=== PATIENT | male | born 1990 | race Caucasian/White ===

== ENCOUNTER 2016-03-27 15:41 | Emergency (ER) | payer OTHER, SELFPAY ==
[2016-03-27 15:41] VITALS: BMI 24.4
--- NOTE | 2016-03-27 17:20 | EDPRACDOC ---
- General Information Stated Complaint: DENTAL PAIN Time Seen by Provider: 03/27/16 17:13 Information Source: Patient Home Medications: Home Medications Amoxicillin 500 mg PO BID #20 capsule 10/18/15 BuPROPion (Daily formulation) [Wellbutrin Xl] 150 mg PO DAILY 10/18/15 Citalopram Hydrobromide [Celexa] 20 mg PO DAILY 10/18/15 Oxycodone Immediate Release [Oxycodone Immediate Release (OxyIR)] 5 mg PO BID # 7 tab 10/18/15 Ondansetron [Zofran Odt] 4 mg PO Q6H PRN #10 tab.rapdis 10/24/15 Amoxicillin Trihydrate [Amoxicillin] 500 mg PO TID #21 tab 03/27/16 Hydrocodone Bit/Acetaminophen [Lortab 5/325] 1 tab PO Q4-6H PRN #15 tab Allergies/Adverse Reactions: Allergies Allergy/AdvReac Type Severity Reaction Status Date / Time No Known Allergies Allergy Verified 10/24/15 20:13 - History of Present Illness Onset: weeks HPI: Pt states had problems with his teeth for years. Pt states fever, earache x 1 week. Pt states has appointment for have implants on with Dr Macedo. Pain Severity: Reports: Moderate Relevant History of: Reports: None Modifying Factors: improves with: Cold Associated Signs and Symptoms: Reports: Fever, Earache ED Past Medical History - History Reviewed Yes Nurses notes reviewed and agree except as marked - Patient Medical History Respiratory History: Reports: Asthma Psychological History: Denies: Depression Systemic History: Reports: Cancer (MELANOMA) Surgical History: Reports: Other (MELANOMA REMOVAL (ON BACK)) - Social Medical History Smoking Status: Heavy tobacco smoker (5 or more cigarettes/day or daily pipe/ cigar) ETOH: None Substance Abuse: None EDM Review of Systems - Review of Systems Constitutional: Fever. negative: No Symptoms Reported, Chills, Fatigue, Loss of Appetite, Weakness Ears: Pain Throat: No Symptoms Reported. negative: Pain, Swelling Nose: Congestion. negative: No Symptoms Reported, Abrasion, Bleeding, Discharge , Deformity, Ecchymosis, Injection, Laceration, Swelling, Tender Mouth: Tooth Pain Respiratory: No Symptoms Reported. negative: Cough, Brassy Cough, Barky Cough, Shortness of Breath, Wheezing, Hemoptysis Neurological: Headache Musculoskeletal: No Symptoms Reported. negative: Neck, Chestwall, Ribs, Back, Shoulder, Arm, Elbow, Forearm, Wrist, Hand, Pelvis, Hip, Femur, Knee, Leg, Ankle , Foot Integumentary: No Symptoms Reported. negative: Itching, Rash, Bruising, Wound Allergic/Immunologic: No Symptoms Reported. negative: Hives, Itching Hematologic: No Symptoms Reported. negative: Lymphadenopathy, Easy Bruising, Easy Bleeding Psychiatric: No Symptoms Reported. negative: Anxiety, Depression, Hallucinations, Insomnia, Suicidal - Physical Exam Constitutional: No apparent distress, Alert Oriented to: Time, Person, Place Last recorded Vital Signs: Last Vital Signs Temp 98.0 F 03/27/16 17:13 Pulse 119 03/27/16 17:13 Resp 20 03/27/16 17:13 BP 119/82 03/27/16 17:13 Pulse Ox 97 03/27/16 17:13 Oxygen Pulse Oxygen Saturation 97 O2 Device Room Air Oxygen Flow Rate Fraction of Inspired Oxygen ( FIO2) - HEENT Head: Normal ( normocephalic) Eye Exam: Normal (PERRL, EOMI, Sclera white) Oropharynx: Normal (Pharynx:Moist without exudate,Gums-no swelling) Tympanic Membrane: Bulging ENT EAC: Normal TMJ: Normal Nose: Congestion Neck: Normal (FROM, trachea at midline) - Respiratory/Cardiovascular Respiratory: Normal - CTA (BBS clear to auscultation without adventitious sounds ) Cardiovascular: Normal (RRR without murmur, gallop or rub) - Integumentary Skin: Normal, Warm, Dry Lymphatics: Normal (no adenopathy) - Neurologic Memory Impaired: Normal Motor Function: Normal (Normal tone, Pulses 2+ No cyanosis or edema, FROM) Mood Description: Normal Perception: Normal ED Tooth Problem Exam - HEENT Face: Normal Gingiva: Swelling Palate: Normal Mouth Range of Motion: Normal Sinuses: Normal Oropharynx: Normal Neck: Normal - Other Exam Other Exam Findings: diffuse caries with decay to gumline - Differential Diagnosis Periapical Abscess, Periodontal Abscess Decision Time to Discharge: 17:19 - Departure Disposition: Home Condition: Good Final Diagnosis: Dental abscess, Dental caries Instructions: Dental Abscess (ED), Dental Caries (ED) Education/Counseling Given To: Patient Education/Counseling Given Regarding: Diagnosis, Treatment, Follow Up Referrals: Rich Macedo MD [Primary Care Provider] - One Week Prescriptions: Amoxicillin Trihydrate [Amoxicillin] 500 mg PO TID #21 tab Hydrocodone Bit/Acetaminophen [Lortab 5/325] 1 tab PO Q4-6H PRN #15 tab PRN Reason: Pain Additional Instructions: Follow up with Dentist as planned on .
[2016-03-27 17:23] VITALS: BP 119/82; PULSE 119; TEMP 98
== END 2016-03-27 17:27 | disposition home or self-care (01) ==
LOC: EDMC 15:41
DX: K04.7 Periapical abscess without sinus (principal); K02.9 Dental caries, unspecified
CPT/HCPCS: 99282

== ENCOUNTER 2016-05-01 01:30 | Emergency (ER) | payer SELFPAY ==
[2016-05-01 01:31] VITALS: BMI 24.4
[2016-05-01 01:38] VITALS: TEMP 98
[2016-05-01] MEDS ORDERED: AMOXICILLIN/CLAVULANATE 875 MG TAB PO ONE (01:44)
[2016-05-01] MEDS ORDERED: OXYCODONE HCL 5 MG TABLET PO ONE (01:44)
--- NOTE | 2016-05-01 01:47 | EDPRACDOC ---
- General Information Chief Complaint: Toothache Stated Complaint: TOOTH PAIN Time Seen by Provider: 05/01/16 01:40 Information Source: Patient Mode Of Arrival: Car Home Medications: Home Medications BuPROPion (Daily formulation) [Wellbutrin Xl] 150 mg PO DAILY 10/18/15 Citalopram Hydrobromide [Celexa] 20 mg PO DAILY 10/18/15 Amoxicillin/Clavulanate Potas. [Augmentin] 875 mg PO BID #20 tab 05/01/16 Oxycodone Immediate Release [Oxycodone Immediate Release (OxyIR)] 5 mg PO BID # 15 tab 05/01/16 Allergies/Adverse Reactions: Allergies Allergy/AdvReac Type Severity Reaction Status Date / Time No Known Allergies Allergy Verified 10/24/15 20:13 - History of Present Illness Onset: 1 month HPI: PT STATES HE IS CONTINUING TO SEEK CARE FOR HIS DENTAL ISSUES. IS HAVING DIFFICULTY DUE TO FINANCIAL PROBLEMS. PT IS HAVING PAIN TONIGHT IN THE RIGHT UPPER 2ND MOLAR. DENIES FEVER AND CHILLS Reported Tooth Problem: RIGHT UPPER 2ND MOLAR Pain Severity: Reports: Moderate Relevant History of: Reports: None Modifying Factors: improves with: Heat, Cold, Chewing Associated Signs and Symptoms: Reports: Earache ED Past Medical History - History Reviewed Yes Nurses notes reviewed and agree except as marked - Patient Medical History Respiratory History: Reports: Asthma Psychological History: Denies: Depression Systemic History: Reports: Cancer (melanoma cancer on back) Surgical History: Reports: Other (MELANOMA REMOVAL (ON BACK)) - Social Medical History Smoking Status: Never smoker EDM Review of Systems - Review of Systems ROS Negative Except as Marked: Yes All systems reviewed and were negative except as marked - Physical Exam Constitutional: Alert (PT APPEARS UNCOMFORTABLE) Oriented to: Time, Person, Place Last recorded Vital Signs: Last Vital Signs Temp 98 F 05/01/16 01:32 Pulse 105 05/01/16 01:32 Resp 18 05/01/16 01:32 BP 130/76 05/01/16 01:32 Pulse Ox 98 05/01/16 01:32 Oxygen Pulse Oxygen Saturation 98 O2 Device Room Air Oxygen Flow Rate Fraction of Inspired Oxygen ( FIO2) - HEENT Head: Normal ( normocephalic) Eye Exam: Normal (PERRL, EOMI, Sclera white) Oropharynx: Normal (Pharynx:Moist without exudate,Gums-no swelling) Tympanic Membrane: Normal Nose: No Symptoms Reported (septum midline) Neck: Normal (FROM, trachea at midline) - Respiratory/Cardiovascular Respiratory: Normal - CTA (BBS clear to auscultation without adventitious sounds ) Cardiovascular: Tachycardia - GI Auscultation: Normal (NABS) Palpation: Normal (Soft,No rebound or guarding, non distended) Tenderness: Non tender Hernandez's Sign: Negative Rectal Exam: Deferred - Musculoskeletal Back: Normal (Non-Tender) Extremities: Normal (Normal tone, Pulses 2+ No cyanosis or edema, FROM) - Integumentary Skin: Normal, Warm, Dry Lymphatics: Normal (no adenopathy) - Neurologic Memory Impaired: Normal Motor Function: Normal (Normal tone, Pulses 2+ No cyanosis or edema, FROM) Cranial Nerve: Normal (CN II-X11 intact sensation, strength 5/5) Cerebellar: Normal Mood Description: Normal Perception: Normal ED Tooth Problem Exam - HEENT Face: Swelling, Tender Teeth: Right: Molar-2 Upper (BROKEN WITH CARIES) Gingiva: Tender, Swelling Palate: Normal Mouth Range of Motion: Normal Sinuses: Normal Oropharynx: Normal Neck: Normal - Differential Diagnosis Periodontal Abscess Decision Time to Discharge: 01:47 - Departure Disposition: Home Condition: Stable Final Diagnosis: Dental abscess (peridontal), Dental caries Instructions: Dental Abscess (ED), Dental Caries (ED) Education/Counseling Given To: Patient Education/Counseling Given Regarding: Diagnosis, Treatment, Prognosis, Follow Up Referrals: Jim Pardo MD [Staff Physician] - One Week Prescriptions: New Amoxicillin/Clavulanate Potas. [Augmentin] 875 mg PO BID #20 tab Continue Oxycodone Immediate Release [Oxycodone Immediate Release (OxyIR)] 5 mg PO BID #15 tab Discontinued Amoxicillin 500 mg PO BID #20 capsule Ondansetron [Zofran Odt] 4 mg PO Q6H PRN #10 tab.rapdis PRN Reason: Nausea/Vomiting Amoxicillin Trihydrate [Amoxicillin] 500 mg PO TID #21 tab Hydrocodone Bit/Acetaminophen [Lortab 5/325] 1 tab PO Q4-6H PRN #15 tab PRN Reason: Pain No Action BuPROPion (Daily formulation) [Wellbutrin Xl] 150 mg PO DAILY Citalopram Hydrobromide [Celexa] 20 mg PO DAILY Additional Instructions: INCREASE FLUID INTAKE. FOLLOW UP WITH PRIMARY CARE PROVIDER NEXT WEEK. TAKE ALL ANTIBIOTICS PRESCRIBED. RETURN TO THE ED FOR WORSENING SYMPTOMS OR CONCERNS.
[2016-05-01 02:02] VITALS: BP 122/71; PULSE 101
== END 2016-05-01 01:59 | disposition home or self-care (01) ==
LOC: ED 01:30
DX: K04.7 Periapical abscess without sinus (principal); K02.9 Dental caries, unspecified
CPT/HCPCS: 99283; J3490